=== PATIENT | male | born 1985 | race African-American/Black ===

== ENCOUNTER 2021-05-09 19:28 | Emergency (ER) | payer BC ==
[~2021-05-09] VITALS: Ht 182.9 cm; Wt 86.0 kg
[2021-05-09 19:57] VITALS: BP 149/92
[2021-05-09] MEDS ORDERED: ACYCLOVIR 400 MG TABLET PO ONE (23:15)
[2021-05-09] MEDS ORDERED: ACYC200C31 MT ×3 (23:20→23:45)
== END 2021-05-09 23:41 | disposition home or self-care (01) ==
LOC: ER 19:28
DX: B00.1 Herpesviral vesicular dermatitis (principal); I10 Essential (primary) hypertension
CPT/HCPCS: 99283